=== PATIENT | male | born 1995 | race Caucasian/White ===

== ENCOUNTER 2017-10-28 11:28 | Emergency (ER) | payer OTHER ==
--- NOTE | 2017-10-28 12:13 | EDM.PDOC ---
ED HPI GENERAL MEDICAL PROBLEM - General Chief Complaint: Wound Recheck Stated Complaint: INFECTED MIDDLE FINGER Time Seen by Provider: 10/28/17 12:00 Source of Information: Reports: Patient, RN Notes Reviewed - History of Present Illness INITIAL COMMENTS - FREE TEXT/NARRATIVE: 22-year-old male had surgery right distal middle finger for extensor tendon injury about 4 weeks ago. The last 4 days or so there has developed redness around the incision, there is a small amount of fluid that drained from the incision last evening. There has been mild swelling, mild discomfort. - Related Data Allergies Allergy/AdvReac Type Severity Reaction Status Date / Time No Known Allergies Allergy Verified 10/28/17 11:52 Home Meds: Home Meds Doxycycline [Vibramycin] 100 mg PO BID #20 tab 10/28/17 [Rx] Methadone HCl [Methadone] 125 mg PO DAILY 10/28/17 [History] Past Medical History - Past Surgical History HEENT Surgical History: Reports: Myringotomy w Tube(s) Musculoskeletal Surgical History: Reports: ORIF, Other (See Below) Other Musculoskeletal Surgeries/Procedures:: tendon repair Social & Family History - Tobacco Use Smoking Status *Q: Current Every Day Smoker Years of Tobacco use: 5 Packs/Tins Daily: 1 - Caffeine Use Caffeine Use: Reports: Energy Drinks - Recreational Drug Use Recreational Drug Use: No ED ROS GENERAL - Review of Systems Review Of Systems: See Below Constitutional: Denies: Fever, Chills HEENT: Reports: No Symptoms Respiratory: Reports: No Symptoms Cardiovascular: Reports: No Symptoms GI/Abdominal: Denies: Nausea, Vomiting Musculoskeletal: Reports: Other (Mild discomfort right distal middle finger) Neurological: Denies: Numbness, Tingling ED EXAM, SKIN/RASH Exam: See Below General Appearance: Alert, No Apparent Distress Head: Atraumatic Neck: Supple Respiratory/Chest: No Respiratory Distress Extremities: Redness (There is mild erythema around a healing incision dorsal aspect DIP area right middle finger. No active drainage at this time, slight crusting present. Very mild localized swelling) Neurological: Alert, No Motor/Sensory Deficits Skin: Warm, Dry Course - Vital Signs Last Recorded V/S: Last Vital Signs Temp 97.8 F 10/28/17 11:48 Pulse 80 10/28/17 11:48 Resp 16 10/28/17 11:48 BP 119/75 10/28/17 11:48 Pulse Ox 96 10/28/17 11:48 Departure - Departure Time of Disposition: 12:11 Disposition: Home, Self-Care 01 Condition: Fair Clinical Impression: Finger infection - Discharge Information Prescriptions: Doxycycline [Vibramycin] 100 mg PO BID #20 tab Instructions: Fingertip Infection Referrals: PCP,None [Primary Care Provider] - Forms: ED Department Discharge Additional Instructions: Continue to soak finger 3-4 times daily as best you can, warm soapy water would be fine. Doxycycline antibiotic 100 mg twice daily for 10 days. Follow-up clinic for recheck if this is not resolving over the next 5-7 days as expected.
== END 2017-10-28 12:00 | disposition home or self-care (01) ==
LOC: JD.ED 11:28
DX: L08.9 Local infection of the skin and subcutaneous tissue, unspecified (principal); F17.210 Nicotine dependence, cigarettes, uncomplicated; Z79.899 Other long term (current) drug therapy
CPT/HCPCS: 99283

== ENCOUNTER 2017-11-08 11:33 | Emergency (ER) | payer OTHER ==
--- NOTE | 2017-11-08 12:02 | EDM.PDOC ---
ED HPI GENERAL MEDICAL PROBLEM - General Chief Complaint: Upper Extremity Injury/Pain Stated Complaint: RIGHT MIDDLE FINGER INFECTION Time Seen by Provider: 11/08/17 11:59 Source of Information: Reports: Patient History Limitations: Reports: No Limitations - History of Present Illness INITIAL COMMENTS - FREE TEXT/NARRATIVE: 22-year-old male presents the ED for evaluation of an infection dorsal aspect of his right third finger. Patient had a laceration into this area with requirement for extensor tendon repair 6 weeks ago. The area seemed to become infected acouple weeks ago and he was placed on a 10 day course of doxycycline which did improve the redness and swelling and seemed to bring the infection under control. Note he started the antibiotic on October 28. However over the last few days infection seems to be coming back. He believes he is been able to express some pus from the wound. Question is whether or not there was a suture that is being extruded from the wound. He has no systemic signs of infection. Onset: Gradual Onset Date: 11/04/17 (Showing worsening redness swelling and pain dorsal aspect right third finger at site of previous extensor tendon repair and laceration.) Duration: Day(s): Location: Reports: Upper Extremity, Right (Right dorsal third finger over the middle phalanx.) Quality: Reports: Ache, Throbbing Severity: Moderate Improves with: Reports: None Worsens with: Reports: None Context: Reports: Trauma (Previous laceration and tendon extensor tendon repair necessary.). Denies: Activity, Exercise, Lifting, Sick Contact Associated Symptoms: Reports: No Other Symptoms Treatments SUBSTANCE ABUSE SERVICES DIRECTOR: Reports: NSAIDS - Related Data Allergies Allergy/AdvReac Type Severity Reaction Status Date / Time No Known Allergies Allergy Verified 10/28/17 11:52 Home Meds: Home Meds Methadone HCl [Methadone] 125 mg PO DAILY 10/28/17 [History] Doxycycline [Vibramycin] 100 mg PO BID #28 cap 11/08/17 [Rx] Past Medical History Psychiatric History: Reports: Addiction Other Psychiatric History: pt is on methadone for treatment program for drugs - Past Surgical History HEENT Surgical History: Reports: Myringotomy w Tube(s) Musculoskeletal Surgical History: Reports: ORIF, Other (See Below) Other Musculoskeletal Surgeries/Procedures:: tendon repair-right 3rd finger August 2017 Social & Family History - Tobacco Use Smoking Status *Q: Current Every Day Smoker Years of Tobacco use: 9 Packs/Tins Daily: 1 - Caffeine Use Caffeine Use: Reports: Coffee, Energy Drinks - Recreational Drug Use Other Recreational Drug Type: no street drugs for past year is on methadone - Living Situation & Occupation Living situation: Reports: Single Occupation: Employed Review of Systems - Review of Systems Review Of Systems: See Below Constitutional: Reports: No Symptoms Eyes: Reports: No Symptoms Ears: Reports: No Symptoms Nose: Reports: No Symptoms Mouth/Throat: Reports: No Symptoms Respiratory: Reports: No Symptoms Cardiovascular: Reports: No Symptoms GI/Abdominal: Reports: No Symptoms Genitourinary: Reports: No Symptoms Musculoskeletal: Reports: Other (Primary injury was to the dorsal aspect over the middle phalanx right third finger about 6 weeks ago. He required primary repair of the extensor tendon and laceration repair) Skin: Reports: Other (Swelling and redness dorsal aspect right third finger) Neurological: Reports: No Symptoms Psychiatric: Reports: No Symptoms ED EXAM, GENERAL - Physical Exam Exam: See Below Exam Limited By: No Limitations General Appearance: Alert, WD/WN, No Apparent Distress Extremities: Other (Examination was limited to his right third dorsal finger. Patient does have erythema and increased warmth to palpation over the middle phalanx with evidence of previous surgical repair. There was a questionable whitish area of possible extruded Vicryl suture and opened this up with an 18- gauge needle. No suture material was identified. Appears to be mostly skin) Neurological: Alert, Oriented, CN II-XII Intact, Normal Cognition Psychiatric: Normal Affect, Normal Mood Skin Exam: Warm, Dry, Intact, Normal Color, Erythema (Erythema and increased warmth dorsal aspect right middle finger) Course - Vital Signs Last Recorded V/S: Last Vital Signs Temp 36.6 C 11/08/17 11:46 Pulse 75 11/08/17 11:46 Resp 20 11/08/17 11:46 BP 135/94 H 11/08/17 11:46 Pulse Ox 97 11/08/17 11:46 - Radiology Interpretation Free Text/Narrative:: 22-year-old male attends the ED for essentially wound review of injury to his dorsal right third finger. Injury occurred about 6 weeks ago at which time he lacerated one of the extensor tendons over the middle phalanx and required repair of the tendon as well as the laceration. On October 28 he attended the ED due to redness and swelling and suspect infection developing in the finger and was placed on a ten-day course of doxycycline which he states he completed. Over the last few days he feels he can express pus from the wound and the wound is once again becoming slightly reddened. I concur and I opened up the area to make sure there was no suture extruding from the wound. Bacitracin twice a day with a circumferential bandage. Plan will be to place him on a 14 day course of doxycycline 100 mg twice a day since he tolerated this well and it provides good MRSA coverage. He is to follow-up if any further problem's occur. Departure - Departure Time of Disposition: 11:59 Disposition: Home, Self-Care 01 Condition: Fair Clinical Impression: Open wound of finger, infected Qualifiers: Encounter type: subsequent encounter Qualified Code(s): S61.209D - Unspecified open wound of unspecified finger without damage to nail, subsequent encounter - Discharge Information *PRESCRIPTION DRUG MONITORING PROGRAM REVIEWED*: Not Applicable *COPY OF PRESCRIPTION DRUG MONITORING REPORT IN PATIENT LILLIAN: Not Applicable Prescriptions: Doxycycline [Vibramycin] 100 mg PO BID #28 cap Instructions: Wound Infection, [id number], Wound Care, Adult Referrals: PCP,None [Primary Care Provider] - Forms: ED Department Discharge Additional Instructions: Evaluation the emergency room today in regards to persistent redness and increased warmth and heat from wound dorsal aspect of right third finger. It seemed to improve initially with a 10 day course of doxycycline but with any few days of discontinuing the doxycycline the infection which seemed to reoccur. I opened up the wound to see if there was any obvious suture material trying to extrude from the wound but none was found. Daily cleanse area with soap and water and apply topical antibiotic such as bacitracin or Polysporin to the wound heals up and cover with a bandage to keep clean. Resume doxycycline 100 mg twice daily for the next 14 days to clear up infection completely. Follow -up if any further problem's occur.
== END 2017-11-08 12:16 | disposition home or self-care (01) ==
LOC: JD.ED 11:33
DX: S61.202D Unspecified open wound of right middle finger without damage to nail, subsequent encounter (principal); F17.210 Nicotine dependence, cigarettes, uncomplicated; Z79.899 Other long term (current) drug therapy; X58.XXXA Exposure to other specified factors, initial encounter
CPT/HCPCS: 99283

== ENCOUNTER 2017-12-20 00:52 | Emergency (ER) | payer BC, OTHER ==
--- NOTE | 2017-12-20 01:07 | EDM.PDOC ---
ED HPI GENERAL MEDICAL PROBLEM - General Chief Complaint: Flank Pain Stated Complaint: FLANK PAIN/VOMITING Time Seen by Provider: 12/20/17 01:07 - History of Present Illness INITIAL COMMENTS - FREE TEXT/NARRATIVE: 22-year-old male presents emergency room with abdominal pain. This is right-sided abdominal pain. This started suddenly about an hour and a half prior to arrival was quite severe it starts up in his flank and sheets down into his groin. He has associated nausea and vomiting. Prior to this he has not had any problems with constipation diarrhea no burning or frequency with urination. He has never had problems like this in the past he has no history of kidney stones. Right Flank Pain Score (Numeric/FACES): 10 - Related Data Allergies Allergy/AdvReac Type Severity Reaction Status Date / Time No Known Allergies Allergy Verified 12/20/17 00:58 Home Meds: Home Meds Methadone HCl [Methadone] 125 mg PO DAILY 10/28/17 [History] Past Medical History Psychiatric History: Reports: Addiction Other Psychiatric History: pt is on methadone for treatment program for drugs - Past Surgical History HEENT Surgical History: Reports: Myringotomy w Tube(s) Musculoskeletal Surgical History: Reports: ORIF, Other (See Below) Other Musculoskeletal Surgeries/Procedures:: tendon repair-right 3rd finger August 2017 Social & Family History - Family History Family Medical History: Noncontributory - Tobacco Use Smoking Status *Q: Current Every Day Smoker Years of Tobacco use: 5 Packs/Tins Daily: 1 - Caffeine Use Caffeine Use: Reports: Coffee, Soda - Alcohol Use Days Per Week of Alcohol Use: 7 Number of Drinks Per Day: 2 Total Drinks Per Week: 14 - Recreational Drug Use Recreational Drug Use: No - Living Situation & Occupation Living situation: Reports: Single Occupation: Employed ED ROS GENERAL - Review of Systems Review Of Systems: See Below Constitutional: Reports: No Symptoms HEENT: Reports: No Symptoms Respiratory: Reports: No Symptoms Cardiovascular: Reports: No Symptoms GI/Abdominal: Reports: Abdominal Pain : Reports: Flank Pain. Denies: Frequency, Hematuria, Incontinence, Urgency, Urinary Retention Musculoskeletal: Reports: No Symptoms Skin: Reports: No Symptoms Psychiatric: Reports: No Symptoms Hematologic/Lymphatic: Reports: No Symptoms Immunologic: Reports: No Symptoms ED EXAM, GI/ABD - Physical Exam Exam: See Below Exam Limited By: No Limitations General Appearance: Mild Distress (From the pain) Head: Atraumatic, Normocephalic Neck: Normal Inspection, Supple, Non-Tender, Full Range of Motion Respiratory/Chest: No Respiratory Distress, Lungs Clear, Normal Breath Sounds, No Accessory Muscle Use, Chest Non-Tender Cardiovascular: Normal Peripheral Pulses, Regular Rate, Rhythm, No Edema, No Gallop, No JVD, No Murmur, No Rub GI/Abdominal Exam: Normal Bowel Sounds, Soft, No Organomegaly, No Distention, No Abnormal Bruit, No Mass, Pelvis Stable, Other (Patient has diffuse right sided abdominal pain not worsened with palpation he has no rigidity rebound or guarding noted) Back Exam: Normal Inspection, Full Range of Motion. No: CVA Tenderness (L), CVA Tenderness (R) Extremities: Normal Inspection, No Pedal Edema Course - Vital Signs Last Recorded V/S: Last Vital Signs Temp 36.4 C 12/20/17 00:58 Pulse 53 L 12/20/17 00:58 Resp 18 12/20/17 00:58 BP 116/71 12/20/17 00:58 Pulse Ox 100 12/20/17 00:58 - Orders/Labs/Meds Orders: Active Orders 24 hr Category Date Time Status Abdomen Pelvis wo Cont [CT] Stat Exams 12/20/17 01:39 Taken Lactated Ringers [Ringers, Lactated] 1,000 ml Med 12/20/17 01:45 Active IV ASDIRECTED Medication Orders Lactated Ringer's (Ringers, Lactated) 1,000 mls @ 125 mls/hr IV ASDIRECTED EVELIA Last Admin: 12/20/17 01:44 Dose: 125 mls/hr Labs: Laboratory Tests 12/20/17 12/20/17 12/20/17 Range/Units 00:10 00:10 02:20 WBC 13.42 H (4.23-9.07) K/mm3 RBC 4.64 (4.63-6.08) M/mm3 Hgb 15.1 (13.7-17.5) gm/L Hct 43.7 (40.1-51.0) % MCV 94.2 H (79.0-92.2) fl MCH 32.5 H (25.7-32.2) pg MCHC 34.6 (32.2-35.5) g/dl RDW Std Deviation 41.1 (35.1-43.9) fL Plt Count 242 (163-337) K/mm3 MPV 10.7 (9.4-12.3) fl Neutrophils % (Manual) 61 H (40-60) % Band Neutrophils % 0 (0-10) % Lymphocytes % (Manual) 22 (20-40) % Atypical Lymphs % 5 % Monocytes % (Manual) 7 (2-10) % Eosinophils % (Manual) 4 (0.8-7.0) % Basophils % (Manual) 1 (0.2-1.2) Platelet Estimate Adequate Plt Morphology Comment Normal RBC Morph Comment Normal Sodium 138 (136-145) mEq/L Potassium 3.4 L (3.5-5.1) mEq/L Chloride 97 L (98-107) mEq/L Carbon Dioxide 27 (21-32) mEq/L Anion Gap 17.4 H (5-15) BUN 13 (7-18) mg/dL Creatinine 1.1 (0.7-1.3) mg/dL Est Cr Clr Drug Dosing 86.37 mL/min Estimated GFR (MDRD) > 60 (>60) mL/min BUN/Creatinine Ratio 11.8 L (14-18) Glucose 134 H (74-106) mg/dL Calcium 9.7 (8.5-10.1) mg/dL Total Bilirubin 0.4 (0.2-1.0) mg/dL AST 11 L (15-37) U/L ALT 21 (16-63) U/L Alkaline Phosphatase 73 (46-116) U/L Total Protein 8.1 (6.4-8.2) g/dl Albumin 4.4 (3.4-5.0) g/dl Globulin 3.7 gm/dL Albumin/Globulin Ratio 1.2 (1-2) Urine Color Yellow (Yellow) Urine Appearance Turbid H (Clear) Urine pH 8.5 H (5.0-8.0) Ur Specific [place] 1.015 (1.005-1.030) Urine Protein 2+ H (Negative) Urine Glucose (UA) Negative (Negative) Urine Ketones 1+ H (Negative) Urine Occult Blood Trace-intact H (Negative) Urine Nitrite Negative (Negative) Urine Bilirubin Negative (Negative) Urine Urobilinogen 0.2 (0.2-1.0) Ur Leukocyte Esterase Negative (Negative) Urine RBC 0-5 (0-5) /hpf Urine WBC 0-5 (0-5) /hpf Ur Epithelial Cells Not seen (0-5) /hpf Amorphous Sediment Many H (NOT SEEN) /hpf Urine Bacteria Not seen (FEW) /hpf Urine Mucus Few (FEW) /hpf Meds: Medications Generic Name Dose Route Start Last Admin Trade Name Freq PRN Reason Stop Dose Admin Lactated Ringer's 1,000 mls @ 125 mls/hr 12/20/17 01:45 12/20/17 01:44 Ringers, Lactated IV 125 mls/hr ASDIRECTED EVELIA Administration Discontinued Medications Generic Name Dose Route Start Last Admin Trade Name Freq PRN Reason Stop Dose Admin Fentanyl 100 mcg 12/20/17 01:38 12/20/17 01:47 Sublimaze IVPUSH 12/20/17 01:39 100 mcg ONETIME ONE Administration Fentanyl Confirm 12/20/17 01:39 12/20/17 01:46 Sublimaze Administered 12/20/17 01:40 Not Given Dose 100 mcg .ROUTE .STK-MED ONE Fentanyl 100 mcg 12/20/17 02:41 12/20/17 02:46 Sublimaze IVPUSH 12/20/17 02:42 100 mcg ONETIME ONE Administration Ketorolac Tromethamine 30 mg 12/20/17 03:19 12/20/17 03:28 Toradol IVPUSH 12/20/17 03:20 30 mg ONETIME ONE Administration Ondansetron HCl 4 mg 12/20/17 01:38 12/20/17 01:45 Zofran IVPUSH 12/20/17 01:39 4 mg ONETIME ONE Administration Ondansetron HCl Confirm 12/20/17 01:39 12/20/17 01:46 Zofran Administered 12/20/17 01:40 Not Given Dose 4 mg .ROUTE .STK-MED ONE Tamsulosin HCl 0.4 mg 12/20/17 03:21 12/20/17 03:28 Flomax PO 12/20/17 03:22 0.4 mg ONETIME ONE Administration - Re-Assessments/Exams Free Text/Narrative Re-Assessment/Exam: 12/20/17 04:04 Patient is having better pain control after reviewing labs he received some Toradol. Labs showed creatinine 1.1 mildly elevated white count without bandemia. Urinalysis significant for microscopic hematuria is not suggestive of infectious process. CT evaluation confirms a kidney stone he has a distal 3 mm stone at the right UVJ with some associated hydronephrosis. He is started on Flomax anticipate discharge soon Departure - Departure Time of Disposition: 04:05 Disposition: Home, Self-Care 01 Clinical Impression: Kidney stone on right side - Discharge Information Referrals: PCP,None [Primary Care Provider] - Forms: ED Department Discharge Additional Instructions: Return to the emergency room with any questions problems or worsening symptoms. Follow-up in the Hospital clinic early this next week for recheck [id number]. Try and capture the stone by straining your urine. Keep the stone and bring it into your doctor. Approximately 4 weeks after you think he passed the stone consider repeat imaging to make sure the stone is indeed gone. Take the pain medications one or 2 every 4-6 hours as needed allow 12 hours after using this medication before driving or returning to work - My Orders Last 24 Hours: My Active Orders 12/20/17 01:39 Abdomen Pelvis wo Cont [CT] Stat 12/20/17 01:45 Lactated Ringers [Ringers, Lactated] 1,000 ml IV ASDIRECTED - Assessment/Plan Last 24 Hours: My Active Orders 12/20/17 01:39 Abdomen Pelvis wo Cont [CT] Stat 12/20/17 01:45 Lactated Ringers [Ringers, Lactated] 1,000 ml IV ASDIRECTED
[2017-12-20] MEDS ORDERED: Ondansetron 4 MG/2 ML SDV IVPUSH ONE (01:38)
[2017-12-20] MEDS ORDERED: fentaNYL 100 MCG/2 ML SDV IVPUSH ONE ×2 (01:38→02:41)
[2017-12-20] MEDS ORDERED: Ondansetron 4 MG/2 ML SDV ONE (01:39)
[2017-12-20] MEDS ORDERED: fentaNYL 100 MCG/2 ML SDV ONE (01:39)
[2017-12-20] MEDS ORDERED: Lactated Ringers 1,000 ML IV SCH (01:45)
[2017-12-20] MEDS ORDERED: Ketorolac 30 MG/ML SDV IVPUSH ONE (03:19)
[2017-12-20] MEDS ORDERED: Tamsulosin 0.4 MG Cap.ER PO ONE (03:21)
--- NOTE | 2017-12-20 09:32 | CT ---
CT abdomen and pelvis Technique: Multiple axial sections were obtained from above the dome of the diaphragm inferiorly through the pubic symphysis. Intravenous and oral contrast not utilized. Study has been performed as a ureteral stone protocol. Comparison: No prior CT abdomen or pelvis exam. Findings: Right ureter is dilated. Calcification is seen within the right side of the pelvis most likely representing a distal right ureteral stone measuring about 3 mm in size. This occurs slightly proximal to the UVJ. No other abnormal calcifications are seen along the course of the ureters. Visualized lung bases show nothing acute. Noncontrast appearance of the liver and spleen appear within normal limits. Adrenal glands show no nodule. Pancreas is without discrete abnormality. Gallbladder contains no calcified gallstones. Aorta shows no aneurysm. No retroperitoneal adenopathy or mesenteric abnormalities are seen. Mild increased stool noted throughout the colon. Appendix is seen which is normal in size. Bone window settings were reviewed which appear within normal limits for the patient's age. Impression: 1. 3 mm calcification within the right pelvis with dilatation of the right ureter. Findings are felt compatible with an obstructing distal right ureteral stone. 2. Mild increased stool within the colon. 3. No additional abnormality is appreciated on noncontrast CT study of the abdomen and pelvis. Diagnostic code #3 I agree with preliminary report issued by [facility] ([facility] report finalized on 12/20/17, 4:12 AM Central Time)
== END 2017-12-20 04:28 | disposition home or self-care (01) ==
LOC: JD.ED 00:52
DX: N13.2 Hydronephrosis with renal and ureteral calculous obstruction (principal); F17.210 Nicotine dependence, cigarettes, uncomplicated
CPT/HCPCS: 36415; 74176; 80053; 81001; 85007; 85027; 96361; 96374; 96375; 96376; 99284; A9270; J1885; J2405; J3010; J7120